=== PATIENT | female | born 1980 | race Caucasian/White ===

== ENCOUNTER → 2016-10-30 | Outpatient (CLI) | payer BC ==
--- NOTE | 2016-10-30 16:46 | PCVCIMAG ---
APPROVED REPORT Patient Location: Echo lab- Treadmill Stress Test Room #: Stress Nurse: Aurelia Ansari RN Indications- Near-syncope, Palpitations PCP- Merrick Walton The patient exercised according to the Gonzalo Protocol for 14:13 minutes; achieving a work level of 17.2 METS. The resting heart rate of 53 bpm nelda to a maximal heart rate of 162 bpm. This value represents 89% of the maxmial, age-predicted heart rate. The resting blood pressure of 136/88 mmHg, nelda to a maximum blood pressure of 170/70 mmHg. The exercise test was stopped due to Fatigue and dyspnea. No chest pain or other symptoms. The stress electrocardiogram demonstrated rare, isolated PVCs. No ST segment shifts diagnostic of myocardial ischemia. Conclusion 1. Maximal treadmill exercise study, negative for exercise-induced myocardial ischemia. 2. No subjective signs of ischemia such as chest pain or angina-like symptoms. Rare, isolated PVCs throughout exercise. 3. The study was associated with excellent exercise capacity (17.2 METS)
--- NOTE | 2016-10-30 16:49 | PCVCIMAG ---
APPROVED REPORT Study performed: 10/30/2016 14:15:22 EXAM: Comprehensive 2D, Doppler, and color-flow Echocardiogram Patient Location: Echo lab Status: routine BSA: 1.68 HR: 56 bpmBP: 136/88 mmHg Rhythm: Bradycardia Other Information Study Quality: Adequate Indications Palpitations Near Syncope 2D Dimensions LVEF(%): 50.02 (>50%) IVSd: 10.00 (7-11mm) LVDd: 43.62 mm PWd: 8.64 (7-11mm) LVDs: 32.63 (25-40mm) Left Atrium: 34.25 (27-40mm) Aortic Root: 28.13 mm LV Single Plane 4CH: 68.67 % LV Single Plane 2CH: 69.86 %Hinojosa's LVEF: 69.26 % Biplane EF: 69.5 % Volumes Left Atrial Volume (Systole) Single Plane 4CH: 46.45 mLSingle Plane 2CH: 68.94 mL LA ESV Index: 35.00 mL/m2 Aortic Valve AoV Peak Lui.: 1.36 m/s AO Peak Gr.: 7.40 mmHgLVOT Max P.15 mmHg LVOT Max V: 1.02 m/s Mitral Valve E/A Ratio: 1.8 MV Decel. Time: 277.13 ms MV E Max Lui.: 0.93 m/s MV A Lui.: 0.52 m/s IVRT: 96.89 ms Pulmonary Valve PV Peak Lui.: 1.04 m/sPV Peak Gr.: 4.29 mmHg Pulmonary Vein P Vein S: 0.46 m/sP Vein A: 0.26 m/s P Vein D: 0.90 m/sP Vein A Dur.: 148.8 msec P Vein S/D Ratio: 0.51 Tricuspid Valve TR Peak Lui.: 2.14 m/s TR Peak Gr.: 18.32 mmHg Left Ventricle The left ventricle is normal size. There is normal LV segmental wall motion. There is normal left ventricular wall thickness. Left ventricular systolic function is normal. The left ventricular ejection fraction is within the normal range. LVEF is 65-70%. The left ventricular diastolic function is normal. Right Ventricle The right ventricle is normal size. The right ventricular systolic function is normal. Atria The left atrium size is normal. The right atrium size is normal. Aortic Valve The aortic valve is normal in structure. No aortic regurgitation is present. There is no aortic valvular stenosis. Mitral Valve The mitral valve is normal in structure. Mild mitral regurgitation. No evidence of mitral valve stenosis. Tricuspid Valve The tricuspid valve is normal in structure. Trace tricuspid regurgitation with PAP of 28 mmHg. Pulmonic Valve The pulmonary valve is normal in structure. There is no pulmonic valvular regurgitation. Great Vessels The aortic root is normal in size. Dilated IVC 2.7 cm and partially responsive to respiration <50%. Pericardium There is no pericardial effusion. <Conclusion> Left ventricular systolic function is normal. There is normal LV segmental wall motion. LVEF is 65-70%. Normal diastolic function is normal. The aortic valve is normal in structure. No aortic valvular stenosis or insufficiency The mitral valve is normal in structure. Trace mitral regurgitation. Pulmonary artery pressure of 28mmHg There is no pericardial effusion.
== END | disposition home or self-care (01) ==
LOC: PCVCIMAG 14:05
PROVIDERS: ATTEND Internal Medicine
DX: I49.3 Ventricular premature depolarization (principal); I08.1 Rheumatic disorders of both mitral and tricuspid valves; E78.5 Hyperlipidemia, unspecified
CPT/HCPCS: 93017; 93306